=== PATIENT | female | born 1965 | race Caucasian/White ===

== ENCOUNTER → 2016-11-28 | Outpatient (CLI) | payer OTHER ==
[2015-01-26 10:40] VITALS: BP 136/58
[~2016-11-28] MED LIST: ALPR0.5T PO; CETI-281 PO; DEXL60CA2 PO; PROVENTIL HFA6.7 GM IH; VALA500T5 PO
--- NOTE | 2016-11-28 15:31 | KCIC ---
Examination: Ultrasound pelvis HISTORY: History of heavy uterine bleeding COMPARISON: None available TECHNIQUE: Transabdominal, transvaginal ultrasound examinations pelvis. FINDINGS: The uterus measures 7.6 x 3.9 x 4.7 cm. The endometrium is 5.2 mm in thickness. The right ovary measures 2.2 x 1.5 x 2.2 cm. Blood flow identified in the right ovary. The left ovary measures 2.9 x 1.4 x 2.4 cm. Blood flow identified in the left ovary. There is complex appearing cystic structure identified in the left ovary measuring 1.7 cm. Few heterogeneous structures identified in the uterus likely fibroids with the largest measuring 2.8 cm in the superior fundus region. No evidence of free fluid identified in the cul-de-sac. IMPRESSION: 1. Heterogeneous structures identified in the uterus likely fibroids with the largest measuring 2.8 cm in the fundus of the uterus. 2. Complex appearing cystic structure identified in the left ovary measuring 1.7 cm could be a complex cyst or follicle. Recommend follow-up exam to document stability. Electronically signed by: Chris Lawrence MD (11/28/2016 3:28 PM) [facility]
== END | disposition home or self-care (01) ==
LOC: KCIC US 13:52
PROVIDERS: ATTEND Obstetrics & Gynecology
DX: N93.9 Abnormal uterine and vaginal bleeding, unspecified (principal); N83.202 Unspecified ovarian cyst, left side
CPT/HCPCS: 76830; 76856

== ENCOUNTER → 2016-12-10 | Outpatient (CLI) | payer OTHER ==
[2015-01-26 10:40] VITALS: BP 136/58
== END | disposition home or self-care (01) ==
LOC: KCIC MAMMO 15:06
PROVIDERS: ATTEND Surgery

== ENCOUNTER → 2017-01-02 | Outpatient (CLI) | payer OTHER ==
[2015-01-26 10:40] VITALS: BP 136/58
--- NOTE | 2017-01-02 13:51 | KCIC ---
DATE: 01/02/2017 EXAM: MAMMO MARY NEELA MAHONEY, BREAST LEFT HISTORY: 6 month follow-up. COMPARISON: 02/08/2016 , 06/13/2016: This study was interpreted with the benefit of Computerized Aided Detection (CAD). The breast parenchyma is heterogeneously dense, which could reduce sensitivity of mammography. Breast parenchyma level C. FINDINGS: 2-D and 3-D tomosynthesis imaging was performed in CC and MLO projections. There are several small, smooth, benign-appearing lymph node type densities in the lateral aspects of both breasts. These are best delineated on today's tomogram images. These nodules appear to be unchanged since 02/08/2016. There is also an unchanged benign-appearing lymph node type density in the lateral aspect of the left breast. There is also a slightly lobulated, smooth, 10-11 mm nodule in the lateral aspect of the left breast as best delineated on the coronal tomogram image #34. This appears to be unchanged since 06/13/2016. No new or enlarging breast densities are seen. No suspicious microcalcifications are evident. Left breast ultrasound, 01/02/2017: A targeted ultrasound exam was performed at the 1:00 location where nodules were seen on 06/13/2016. Approximately 5 cm from the nipple at the 1:00 location there is a slightly lobulated hypoechoic structure measuring 11-12 mm in greatest dimension. On today's exam there is posterior acoustic enhancement. This probably represents a septated cyst or fibroadenoma. Allowing for technical differences it appears to be unchanged in size since 06/13/2016. Just superficial to this above described lesion there is a smaller 3 mm hypoechoic nodule. Its margins are smooth. There are low level internal echoes. This is probably a complicated cyst. It is unchanged in size since the previous study. No new abnormality is detected. IMPRESSION: 1. Stable mammograms without evidence of malignancy. 2. Unchanged probably benign left breast nodules. Follow-up left breast ultrasound in 6 months and bilateral mammography at one year is suggested. BI-RADS CATEGORY: 3 PROBABLY BENIGN FINDING(S)-SHORT INTERVAL FOLLOW-UP SUGGESTED RECOMMENDED FOLLOW-UP: 6M 6 MONTH FOLLOW-UP PQRS compliance statement: Patient information was entered into a reminder system with a target due date for the next mammogram. Mammography is a sensitive method for finding small breast cancers, but it does not detect them all and is not a substitute for careful clinical examination. A negative mammogram does not negate a clinically suspicious finding and should not result in delay in biopsying a clinically suspicious abnormality. "Our facility is accredited by the [employer] Mammography Program."
== END | disposition home or self-care (01) ==
LOC: KCIC MAMMO 12:06
PROVIDERS: ATTEND Surgery
DX: D24.2 Benign neoplasm of left breast (principal)
CPT/HCPCS: 76641; G0204; G0279; 77062; 77066

== ENCOUNTER 2017-02-12 05:44 | Observation (INO) | payer OTHER ==
[~2017-02-12] VITALS: Ht 165.1 cm; Wt 74.4 kg
[2017-02-12] VITALS (7 sets, daily range): BP systolic 106–123; BP diastolic 64–80
[2017-02-12 06:40] LABS: BASO % 1 % (0-3); EOS % 1 % (0-3); HEMATOCRIT 39.4 % (36.0-47.0); HEMOGLOBIN 12.8 g/dL (12.0-15.5); LYMPH # 1.3 x10^3/uL (1.0-4.8); LYMPH % 29 % (24-48); MEAN CORPUSCULAR HEMOGLOBIN 28 pg (25-35); MEAN CORPUSCULAR HGB CONC 33 g/dL (31-37); MEAN CORPUSCULAR VOLUME 86 fL (79-100); MONO % 10 % (0-9); NEUT % 58 % (31-73); PLATELET COUNT 278 x10^3/uL (140-400); RED BLOOD COUNT 4.57 x10^6/uL (3.50-5.40); RED CELL DISTRIBUTION WIDTH 14.8 % (11.5-14.5); WHITE BLOOD COUNT 4.4 x10^3/uL (4.0-11.0)
[2017-02-12] MEDS ORDERED: BUPIVAC MPF-EPI 0.5%-1:200000 30 ML VIAL. ONE (06:45)
[2017-02-12] MEDS ORDERED: METHYLENE BLUE 1% 10 ML VIAL. ONE (06:45)
[2017-02-12] MEDS ORDERED: ESTROGENS, CONJ VAGINAL CREAM 30GM TUBE. ONE (06:46)
[2017-02-12] MEDS ORDERED: SURGICEL HEMOSTAT 4X8 EACH. ONE (06:46)
[2017-02-12] MEDS ORDERED: LIDOCAINE 1%/EPI 1:100,000 20 ML VIAL. ONE (06:46)
[2017-02-12] MEDS ORDERED: ONDANSETRON PF 4 MG/2 ML VIAL. IV PRN ×2 (07:00→09:30)
[2017-02-12] MEDS ORDERED: HYDROmorphone 2 MG/ML VIAL IV PRN ×2 (07:00→11:30)
[2017-02-12] MEDS ORDERED: IV RINGERS,LACTATED 1000ML 1,000 ML IV SCH (07:00)
[2017-02-12] MEDS ORDERED: PROCHLORPERAZINE 10 MG/2 ML VIAL. IV PRN ×2 (07:00→09:30)
[2017-02-12] MEDS ORDERED: fentaNYL PF VIAL 100 MCG/2 ML VIAL IV PRN (07:00)
[2017-02-12] MEDS ORDERED: MORPHINE SULFATE 2 MG/ML DISP.SYRIN. IV PRN (07:00)
[2017-02-12 07:01] LABS: NEG OBC UR NEG; POS OBC UR POS
[2017-02-12] MEDS ORDERED: LIDOCAINE 2% PF Vial for OR 5 ML VIAL. ONE (07:14)
[2017-02-12] MEDS ORDERED: PROPOFOL 20 ML IV ONE (07:14)
[2017-02-12] MEDS ORDERED: ROCURONIUM 100 MG/10 ML VIAL. ONE (07:15)
[2017-02-12] MEDS ORDERED: fentaNYL PF VIAL 100 MCG/2 ML VIAL ONE (07:15)
[2017-02-12] MEDS ORDERED: SUCCINYLCHOLINE 200 MG/10 ML VIAL. ONE (07:15)
[2017-02-12] MEDS ORDERED: SCOPOLAMINE 1.5MG PATCH. TD ONE (07:15)
[2017-02-12] MEDS ORDERED: BUPIVACAINE MPF 0.25% 30 ML VIAL. ONE (07:37)
[2017-02-12] MEDS ORDERED: ONDANSETRON PF 4 MG/2 ML VIAL. ONE (08:19)
[2017-02-12] MEDS ORDERED: DESFLURANE 61 TO 120 MINUTES IH ONE (08:19)
[2017-02-12] MEDS ORDERED: DEXAMETHASONE SOD PHOS 20 MG/5 ML VIAL. ONE (08:19)
[2017-02-12] MEDS ORDERED: FAMOTIDINE 20 MG/2 ML VIAL ONE (08:19)
[2017-02-12] MEDS ORDERED: NEOSTIGMINE 10 MG/10 ML VIAL. ONE (08:20)
[2017-02-12] MEDS ORDERED: GLYCOPYRROLATE 1 MG/5 ML VIAL. ONE (08:21)
--- NOTE | 2017-02-12 09:26 | PDOC ---
BRIEF OPERATIVE NOTE Date: Feb 12, 2017 Pre-Op Diagnosis 1. Fibroids 2. Menorrhagia 3. TRES Cyst Post-Op Diagnosis SAme Procedure Performed TLH & BSO Surgeon Dr. Joyce Briscoe Anesthesia Type: General Blood Loss 25 ml Specimens Obtained uterus, cervix, hector. fallopian tubes and ovaries Findings enlarged, fibroid uterus; TRES cyst; nml fallopian tubes hector., nml ROV Complications none Operative Note see dictation JERRI HARDING Jr, MD Feb 12, 2017 09:26
[2017-02-12] MEDS ORDERED: ZOLPIDEM 5 MG TABLET. PO PRN (09:30)
[2017-02-12] MEDS ORDERED: SIMETHICONE 80 MG TAB.CHEW PO PRN (09:30)
[2017-02-12] MEDS ORDERED: 0.9 % SODIUM CHLORIDE 10 ML DISP.SYRIN. IV PRN (09:30)
[2017-02-12] MEDS ORDERED: CALCIUM CARBONATE 500 MG TAB.CHEW PO PRN (09:30)
[2017-02-12] MEDS ORDERED: diphenhydrAMINE HCL 25 MG CAPSULE PO PRN (09:30)
[2017-02-12] MEDS ORDERED: KETOROLAC 30 MG/ML INJ. IV PRN (09:30)
[2017-02-12] MEDS ORDERED: diphenhydrAMINE 50 MG/ML VIAL IV PRN (09:30)
[2017-02-12] MEDS ORDERED: DEXTROSE 50% 25 GM / 50ML DISP.SYRIN. IV PRN (09:30)
[2017-02-12] MEDS: fentaNYL PF VIAL 100 MCG/2 ML VIAL IV PRN ×4 (09:46→10:43)
--- NOTE | 2017-02-12 10:06 | OP ---
DATE OF SURGERY: PREOPERATIVE DIAGNOSES: 1. Fibroids. 2. Menorrhagia. 3. Left ovarian cyst. POSTOPERATIVE DIAGNOSES: 1. Fibroids. 2. Menorrhagia. 3. Left ovarian cyst. PROCEDURE: TLH-BSO via [employer] robot. SURGEON: Jerri Cook M.D. EVENING ANCHOR: Rachna. ANESTHESIA: GETA. ESTIMATED BLOOD LOSS: 25 mL. COMPLICATIONS: None. FINDINGS: Enlarged fibroid uterus, left ovarian cyst, normal fallopian tubes bilaterally, normal right ovary. SUMMARY: A 51-year-old female with fibroids and menorrhagia as well as left ovarian cyst. She was counseled on the need for hysterectomy. The patient was counseled on the risks, benefits and expectations and voiced a clear understanding to proceed. DESCRIPTION OF PROCEDURE: The patient was taken to the surgery suite and placed in dorsal lithotomy position. She was prepped with Betadine solution for vaginal prep and ChloraPrep for abdominal prep. After adequate anesthesia, bivalve speculum was placed vaginally. Anterior lip of the cervix was grasped with a single-toothed tenaculum. The Tanya uterine manipulator was then placed. The single-toothed tenaculum and bivalve speculum were removed. Attention was now placed on the abdomen. An incision was made 2 cm above the umbilicus with a scalpel in which the Veress needle was then placed through the incision site. The abdomen was insufflated up to 1-1/2 liters CO2 gas. The Veress needle was then removed. An 8-mm trocar camera port was then placed. The camera was positioned. The uterus was enlarged with multiple fibroids. There was a left ovarian cyst of about 5 cm size. Right ovary appeared normal. Incisions were made in the right and left lower quadrant with a scalpel, in which the 8-mm ports were placed. An accessory port was placed in the left upper quadrant, which was a 5-mm port. The robot was then docked in normal fashion. I then proceeded to the console. With the aid of the bipolar cautery and vessel sealer, the right round ligament was coagulated and dissected. The right infundibulopelvic ligament was coagulated and dissected. Right broad ligament was coagulated and dissected down to and including the right uterine artery. Same process took place with the left adnexa. Bladder flap was created using blunt dissection along with the vessel sealer. A spatula was utilized to circumscribe the cervix at the level of the cervical ring. The cervix, uterus, bilateral fallopian tubes and ovaries were then removed in their entirety. The vaginal cuff was reapproximated using a V-Loc suture in a running fashion. The pedicles were all hemostatic, which was verified with suction irrigation. A small amount of normal saline was left in the posterior cul-de-sac. The robot was undocked. Then, the trocars were removed under direct visualization. The abdomen was allowed to deflate as much as possible along with mechanical manipulation. The four skin incisions were reapproximated using 4-0 Vicryl suture in a subcuticular manner. A 0.5% Marcaine was injected at each incision site. A Premarin-soaked vaginal packing was placed. The patient tolerated the procedure well and was taken to recovery room in stable condition. Sponge and needle count correct x 3. JERRI COOK MD DR: LLUVIA/cherelle JOB#: [id number] / [id number]
[2017-02-12] MEDS ORDERED: MIDAZOLAM HCL/PF 2 MG/2 ML VIAL. IV PRN (10:15)
[2017-02-12] MEDS: GABAPENTIN 300 MG CAPSULE. PO SCH ×2 (14:00→22:00)
[2017-02-12] MEDS: oxyCODONE/APAP 5/325 1 TAB TABLET PO PRN ×2 (17:20→22:57)
[2017-02-13] MEDS: oxyCODONE/APAP 5/325 1 TAB TABLET PO PRN ×3 (05:44→14:03)
[2017-02-13 05:47] VITALS: BP 103/63
[2017-02-13 05:58] LABS: BASO % 0 % (0-3); EOS % 0 % (0-3); HEMATOCRIT 35.3 % (36.0-47.0); HEMOGLOBIN 11.5 g/dL (12.0-15.5); LYMPH % 12 % (24-48); MEAN CORPUSCULAR HEMOGLOBIN 28 pg (25-35); MEAN CORPUSCULAR HGB CONC 33 g/dL (31-37); MEAN CORPUSCULAR VOLUME 86 fL (79-100); MONO % 11 % (0-9); NEUT % 77 % (31-73); PLATELET COUNT 266 x10^3/uL (140-400); RED BLOOD COUNT 4.12 x10^6/uL (3.50-5.40); RED CELL DISTRIBUTION WIDTH 15.2 % (11.5-14.5); WHITE BLOOD COUNT 8.6 x10^3/uL (4.0-11.0)
[2017-02-13 12:30] VITALS: BP 111/72
--- NOTE | 2017-02-16 14:44 | PATHOLOGY ---
PATHOLOGY REPORT * * * * * * * * FINAL DIAGNOSIS: Uterus and attached bilateral fallopian tubes and ovaries, robotic total laparoscopic hysterectomy with bilateral salpingo-oophorectomy: - Adenomyosis, uterine corpus, nodular, focal. - Slight chronic cervicitis with focal squamous metaplasia. - Proliferative endometrium. - Congestion of bilateral fallopian tubes. - Cystic follicles of ovaries. (JPM:bboby; 02/16/2017) COMMENT: There is no evidence of malignancy. REPORT ELECTRONICALLY SIGNED BY: Cameron Brown M.D. DATE/TIME: 02/16/2017 14:43 * * * * * * * * GROSS PATHOLOGY: The specimen is received in formalin labeled "Roderick Parker, uterus, cervix, BSO". Received is a 79 g, 7.7 x 4.9 x 4.0 cm uterus with attached cervix and attached adnexa, weighing 13 and 9 g, left and right, respectively. The uterine serosa is pink-villalta to pink-novak and smooth in appearance. The 0.8 cm cervical os is surrounded by pale villalta to pink-villalta, smooth ectocervical mucosa. The uterus is oriented using the peritoneal reflection and the anterior paracervical margin is inked black. The uterus is opened laterally to reveal a light villalta, trabeculated endocervical canal measuring 2.4 cm in length. The endometrial cavity is triangular measuring 4.1 cm in length by 2.3 cm in width. The endometrium is pale villalta, glistening in appearance and measures less than 0.1 cm in thickness. Serial sectioning reveals a villalta-pink, trabeculated myometrium measuring up to 2.0 cm in thickness displaying several intramural and submucosal fibroids, ranging in size from 0.5 to 2.4 cm in maximum dimensions. The left adnexa consists of a fimbriated fallopian tube measuring 6.3 cm in length by up to 0.6 cm in diameter attached to a 3.7 x 2.3 x 2.1 cm cystic ovary. Sectioning through the fallopian tube reveals a pinpoint to patent lumen and the fallopian tube appears grossly unremarkable. Sectioning through the ovary reveals multiple cystic structures ranging in size from 0.7 to 1.3 cm filled with yellow fluid. The remaining cut surfaces display pale villalta, normal ovarian stroma. The right adnexa consists of a fimbriated fallopian tube measuring 6.3 cm in length by up to 0.6 cm in diameter attached to a 2.5 x 2.1 x 1.7 cm ovary. Sectioning through the fallopian tube reveals a patent lumen and the fallopian tube appears grossly unremarkable. Sectioning through the ovary reveals a single unilocular cystic structure measuring 1.1 cm filled with blood-tinged fluid. The remaining cut surfaces display pale villalta, normal ovarian stroma. The specimen is submitted representatively as follows: A1 12:00 cervix A2 6:00 cervix A3 anterior endomyometrium A4 posterior endomyometrium A5 left adnexa A6 right adnexa. (CAA; 02/13/2017) INITIAL CPT CODE(S): A; 10783 Professional services performed by [facility] [place] [address] Technical services performed by [facility] at [address] [place] [address], [facility] [address], [place] [address]. SPECIMEN(S) RECEIVED: A.Uterus, cervix, bilateral ovaries, fallopian tubes CLINICAL HISTORY: Fibroid, left ovarian cyst, menorrhagia PATIENT: YAMILA RODERICK Maya /AGE: 811/02/1965 (Age: 51) PATIENT #: [id number] ALT CASE #: SPECIMEN COLLECTION DATE: 02/12/2017 SPECIMEN RECEIVED DATE: 02/12/2017 [facility] - [id number] [place] [address] - PHONE: [phone] * * * END OF REPORT * * *
== END 2017-02-13 16:06 | disposition home or self-care (01) ==
LOC: SURG 05:44 → 3 NORTH 09:26
PROVIDERS: ADMIT Obstetrics & Gynecology; ATTEND Obstetrics & Gynecology
DX: N92.0 Excessive and frequent menstruation with regular cycle (principal); D25.9 Leiomyoma of uterus, unspecified; N83.202 Unspecified ovarian cyst, left side
CPT/HCPCS: 36415; 58571; 81025; 85025; 86850; 86900; 86901; 96374; A4215; G0378; G0379; J0330; J0690; J0780; J1100; J1170; J2250; J2704; J2710; J3010; J3490; J7030; J7120; S0028; S2900; 88307; J2405; Q9968; J2001